=== PATIENT | male | born 1985 | race Caucasian/White ===

== ENCOUNTER 2017-01-08 13:55 | Emergency (ER) | payer OTHER ==
[~2017-01-08] VITALS: Ht 177.8 cm; Wt 81.8 kg
[2017-01-08 14:03] VITALS: BP 150/84; PULSE 83; RESP 20; O2SAT 100
--- NOTE | 2017-01-08 14:03 | ED.REPORT ---
HPI-Extremity Problem Upper Date of Service Jan 08, 2017 ED Provider: Dr. Angel Pt is a healthy 31 year old male who presents to the ED with concerns for a dislocated left shoulder while he was playing football immediately prior to arrival. Pt states that he was playing tackle football and not wearing any pads. He reports that he attempted to reduced this himself, unsuccessfully. He has never dislocated his shoulder in the past. He denies any other injuries sustained. Nursing Notes Stated Complaint: LEFT SHOULDER INJURY Nursing Notes Reviewed: Yes Allergies: Coded Allergies: No Known Allergies (Unverified , 01/08/17) General Time Seen by MD: 14:03 Chief Complaint Shoulder injury left Hx Obtained From: Patient Arrived By: Walk-in Onset Occurred: Just prior to arrival Symptom Duration: Since onset Caused by: Accidental, Sports injury Location: : Shoulder left Quality: Painful Severity: Current: Moderate Severity: Maximum: Severe Similar Sx Previous: Yes Past Medical History Past Medical History Healthy Past Surgical History Multiple orthopedic surgeries Ambulatory Status Independent Review of Systems Constitutional: Denies: Chills, Fever, Weakness - generalized Musculoskeletal: Reports: Joint pain, Denies: Back pain, Neck pain Skin: Denies Diaphoresis Neurologic: Denies: Change LOC, Dizziness, Headache, Seizure, Syncope Complete sys rev & neg: except as marked. Physical Exam Initial Vital Signs Vital Signs (First) Date Time Temp Pulse Resp B/P Pulse Ox O2 Delivery O2 Flow Rate FiO2 01/08/17 14:03 36.7 83 20 150/84 100 Room Air Initial VS: Reviewed General/Constitutional: Well-developed, Well-nourished Head / Eyes: Atraumatic, Normocephalic, PERRL ENT: Mucous membranes moist, Conjunctiva normal, No scleral icterus Neck: Supple, Non-tender, Full range of motion Respiratory: Breath sounds normal, Clear to auscultation, No respiratory distress Cardiovascular: Regular rate & rhythm, Heart sounds normal, Intact distal pulses Skin: Warm, Dry, No cyanosis Neurologic: Alert, Oriented, Nonfocal Upper Extremity: Dislocated left shoulder Neurovasularly in tact Interpretation & Diagnostics Lab Results Interpretation Test 01/08/17 14:05 Procedures Reduction Dislocated Shoulder Patient placed prone, arm is hanging by gravity, scapular manipulation and mild axial traction. Easily reduced at the bedside. Time: 14:22 Procedure Performed by: ED physician Consent / Setup: Consent from patient, Pulse oximeter applied, campus monitor applied Which Shoulder and Technique: Left shoulder Neurovascular: Intact pre-procedure, Intact post-procedure Post-Procedure / Complications: Reduced per examination, Procedure successful, X-ray disloc reduced, Shoulder immobilized, Condition improved, Tolerated procedure well, Patient stable Re-Eval/Medical Decision Med Decision/Clinical Course Traumatic shoulder dislocation, initial bedside x-ray does not show an obvious fracture, the shoulder is reduced at the bedside. The patient is neurologically intact before and after the procedure. Discharged with ibuprofen and a shoulder sling with close orthopedic follow-up Source of Hx: Old records Re-Evaluation/Progress : Time of Eval: 14:24 Re-Evaluation/Progress Note: Pt is rechecked, he is informed of his diagnosis and the plan to discharge him at this time. He understands and agrees, all questions are addressed. Counseled Regarding: Diagnosis, Lab results, When/why to return to ED Discharge & Departure Impression: Primary Impression: Dislocated shoulder Encounter type: initial encounter Laterality: left Qualified Code: S43.005A - Unspecified dislocation of left shoulder joint, initial encounter Disposition: Home Discharge Condition All VS Reviewed: Yes Condition: Stable Additional Instructions: Wear the shoulder sling at all times until seen and cleared by orthopedics. Use ibuprofen as needed for pain. Return to the ER as needed for recurrent episodes of shoulder dislocation or other concerns. Referrals: Karri Blanco MD Attestation Portions of this note were transcribed by Jo Calderon. I, Dr. Angel personally performed the history, physical exam and medical decision-making; I reviewed and confirmed the accuracy of the information in the transcribed note. Signed by: Home Robert, 01/08/2017 14:32 copies to: Karri Blanco MD, Timothy Mary Lou CADENA Jan 08, 2017 14:03 KINGA CALDERON Jan 08, 2017 14:11
[2017-01-08] MEDS ORDERED: HYDROmorphone 0.5 mg/0.5 mL iSecure Syringe IVPUSH PRN (14:10)
[2017-01-08] MEDS ORDERED: Ondansetron 2 mg/mL 2 mL Inj IVPUSH PRN (14:10)
--- NOTE | 2017-01-08 14:46 | DRSVH ---
PROCEDURE: X-RAY LEFT SHOULDER, ONE VIEW ([id number]) INDICATIONS: deformed pain TECHNIQUE: One views of the shoulder were acquired. COMPARISON: None. FINDINGS: Bones: There is a dislocation. Based upon this single view this is likely anterior. Soft tissues: No suspicious soft tissue calcifications. IMPRESSION: Dislocation of the humerus from the glenoid. This is inferior and most likely anterior. Dictated by: David Padilla M.D. on 01/08/2017 at 14:43 Approved by: David Padilla M.D. on 01/08/2017 at 14:44
--- NOTE | 2017-01-08 14:48 | DRSVH ---
PROCEDURE: X-RAY LEFT SHOULDER, MINIMUM TWO VIEWS ([id number]) INDICATIONS: reduction TECHNIQUE: 2 views of the shoulder were acquired. COMPARISON: None. FINDINGS: Bones: There is a Hill-Sachs fracture of the left humerus. No fracture of the glenoid is identified. Visualized ribs are normal.. No suspicious bony lesions. Visualized ribs appear intact. Soft tissues: No suspicious soft tissue calcifications. IMPRESSION: Hill-Sachs fracture left humeral head. Dislocated humerus has been reduced. Dictated by: David Padilla M.D. on 01/08/2017 at 14:44 Approved by: David Padilla M.D. on 01/08/2017 at 14:45
== END 2017-01-08 14:30 | disposition home or self-care (01) ==
LOC: SED 13:55
DX: S43.035A Inferior dislocation of left humerus, initial encounter (principal); X50.3XXA Overexertion from repetitive movements, initial encounter; Y93.61 Activity, american tackle football; Y92.321 Football field as the place of occurrence of the external cause; Y99.8 Other external cause status
CPT/HCPCS: 23650; 73020; 73030; 96374; 96375; 99284; J1170; J2405